=== PATIENT | female | born 1940 | race Caucasian/White ===

== ENCOUNTER 2018-02-23 10:03 | Outpatient (CLI) | payer MEDICARE ==
--- NOTE | 2018-02-23 13:16 | RAD ---
TWO VIEWS CHEST: HISTORY: Cough. COMPARISON: 06/18/2017 FINDINGS: Stable curvature of the spine. Normal cardiac silhouette. Pulmonary vessels and hilum are normal. Costophrenic angles are clear. Mild hyperinflation. Chronic changes, without consolidation or mass. No pneumothorax or osseous abnormalities. IMPRESSION: No acute cardiopulmonary process. No change. POS: [facility]
== END 2018-02-23 10:04 | disposition home or self-care (01) ==
LOC: RAD 10:03
PROVIDERS: ATTEND Allergy & Immunology
DX: R05 Cough (principal)
CPT/HCPCS: 71046

== ENCOUNTER 2018-07-24 08:05 | Emergency (ER) | payer MEDICARE ==
[2018-07-24] MEDS ORDERED: Enoxaparin Sodium 60 MG/0.6 ML SYRINGE ONE (08:36)
[2018-07-24] MEDS ORDERED: methylPREDNISolone Sod Succ/PF 125 MG/2 ML VIAL ONE (08:36)
[2018-07-24] MEDS ORDERED: Albuterol Sulfate 2.5 mg/0.5 ml Neb ONE ×2 (08:50)
[2018-07-24 08:56] LABS: #Basophils 0.1 thou/uL (0.0-0.2); #Eosinphils 0.4 thou/uL (0.0-0.7); #Monocytes 0.5 thou/uL (0.11-0.59); #Neutrophils 4.1 thou/uL (1.40-6.50); %Basophils 0.9 % (0.0-1.0); %Eosinophils 6.3 % (0.0-10.0); %Monocytes 7.6 % (0.0-10.0); %Neutrophils 57.3 % (42.0-75.0); Hemoglobin 13.7 g/dL (12.0-16.0); Mean Corpuscular HGB CONC 34.1 g/dL (32.0-36.0); Mean Corpuscular Volume 93.8 fL (78.0-98.0); Mean Platelet Volume 7.2 fL (7.4-10.4); Platelet Count 205 thou/uL (130-400); RBC Distribution Width 12.5 % (11.5-14.5); Red Blood Cell (RBC) Count 4.29 mill/uL (4.20-5.40); White Blood Cell (WBC) Count 7.1 thou/uL (4.8-10.8)
[2018-07-24 08:59] LABS: ALT (SGPT) 32 U/L (8-55); AST (SGOT) 31 U/L (5-34); Albumin 4.2 g/dL (3.4-4.8); Alkaline Phosphatase 70 U/L (40-150); Anion Gap 13 mmol/L (10-20); BUN (Urea Nitrogen) 7 mg/dL (9.8-20.1); Bilirubin, Total 0.5 mg/dL (0.2-1.2); Calc. Creatinine Clearance 0 mL/min (70-130); Calcium 9.2 mg/dL (7.8-10.44); Carbon Dioxide 22 mmol/L (23-31); Chloride 108 mmol/L (98-107); Estimated GFR-MDRD 82; Globulin 2.7 g/dL (2.4-3.5); Glucose 104 mg/dL (83-110); Protein, Total 6.9 g/dL (6.0-8.3); Sodium 139 mmol/L (136-145)
[2018-07-24 09:03] LABS: CKMB 3.6 ng/mL (0-6.6); Troponin I Less than 0.010 ng/mL (< 0.028)
--- NOTE | 2018-07-24 10:00 | RAD ---
PORTABLE CHEST: HISTORY: Dyspnea. COMPARISON: 07/19/18. FINDINGS: There continues to be opacification of the left lung base which has been described previously and rem ains unchanged. Lungs otherwise appear clear and unchanged. The heart and mediastinum are unremarka ble and unchanged. IMPRESSION: Stable chest findings. POS: [facility]
== END 2018-07-24 10:26 | disposition home or self-care (01) ==
LOC: ERS 08:05
DX: J44.1 Chronic obstructive pulmonary disease with (acute) exacerbation (principal); Z79.899 Other long term (current) drug therapy; Z79.82 Long term (current) use of aspirin
CPT/HCPCS: 71045; 80053; 82553; 83605; 83880; 84484; 85025; 93005; 96374; J1650; J2930; J7611; J7620

== ENCOUNTER 2018-09-22 14:59 | Outpatient (CLI) | payer MEDICARE | END 2018-09-22 15:00 | disposition home or self-care (01) | LOC: BICMAMMO 14:59 | PROVIDERS: ATTEND Internal Medicine | DX: Z12.31 Encounter for screening mammogram for malignant neoplasm of breast (principal); Z80.3 Family history of malignant neoplasm of breast | CPT/HCPCS: 77063; 77067 ==

== ENCOUNTER 2018-10-13 08:52 | Outpatient (CLI) | payer MEDICARE ==
--- NOTE | 2018-10-13 10:33 | BD ---
BONE DENSITOMETRY USING DEXA: HISTORY: Postmenopausal screening for osteoporosis. FINDINGS: Lumbar Spine: BMD (g/cm2) L1 0.842 T-Score: -1.3 Z-Score: 0.9 L2 0.908 T-Score: -1.1 Z-Score: 1.5 L3 0.904 T-Score: -1.6 Z-Score: 1.0 L4 0.833 T-Score: -2.1 Z-Score: 0.7 L1-L4 0.867 T-Score: -1.6 Z-Score: 0.9 Femoral Neck: 0.605 T-Score: -2.2 Z-Score: 0.0 Total Femur: 0.747 T-Score: -1.6 Z-Score: 0.4 The 10-year fracture risk for a major osteoporotic fracture is 19% and for a hip fracture is 6.1%. Impression: Osteopenia. POS: [facility]
== END 2018-10-13 08:53 | disposition home or self-care (01) ==
LOC: BICMAMMO 08:52
PROVIDERS: ATTEND Internal Medicine Rheumatology
DX: M81.0 Age-related osteoporosis without current pathological fracture (principal); M85.89 Other specified disorders of bone density and structure, multiple sites
CPT/HCPCS: 77080

== ENCOUNTER 2019-08-08 10:51 | Outpatient (CLI) | payer MEDICARE ==
--- NOTE | 2019-08-08 11:51 | RAD ---
PA AND LATERAL CHEST: Date: 08/08/19 INDICATION: History of dyspnea. COMPARISON: Prior exam dated 07/24/18. 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 Heart size is no rmal. No acute air space opacity is noted. There is scattered degenerative change. IMPRESSION: No acute cardiopulmonary abnormality. POS: [facility]
== END 2019-08-08 10:52 | disposition home or self-care (01) ==
LOC: RAD 10:51
PROVIDERS: ATTEND Internal Medicine Critical Care Medicine
DX: R06.00 Dyspnea, unspecified (principal)
CPT/HCPCS: 71046